=== PATIENT | male | born 1970 | race African-American/Black ===

== ENCOUNTER 2016-09-26 09:30 | Emergency (ER) | payer MEDICAID, OTHER ==
[~2016-09-26] VITALS: Ht 185.4 cm; Wt 90.7 kg
[~2016-09-26 09:30] MED LIST: AMOXICILLIN500 MG PO; BENADRYL25 MG PO; CYCLOBENZAPRINE10 MG ORAL; DILANTIN100 MG PO; FLEXERIL10 MG PO; IBUPROFEN600 MG ORAL; MACROBID100 MG ORAL; NORCO 5-325 TA1 EACH ORAL; VICODIN 5-5001 EACH PO
[2016-09-26] MEDS ORDERED: KEFLEX500 MG ORAL (09:59)
[2016-09-26 11:40] VITALS: BP 14/68
--- NOTE | 2016-09-27 14:13 | Emergency Room Report ---
History of Present Illness General Chief Complaint: Skin Rash/Abscess Source: Patient Present Illness HPI Patient is a 45-year-old male who presented after having increased itchy rash to the back of his neck. Patient stated he recently been using a razor which may have caused the problem. He denies other locations of pain. He had not been having fever. He denied any neck stiffness or headache. Patient had no recent other trauma. Allergies: Coded Allergies: No Known Allergies (Unverified , 09/21/12) Patient History Reviewed Nursing Documentation: PMH: Agreed, PSxH: Agreed Nursing Documentation-PMH Past Medical History: No Stated History Hx Asthma: Yes Hx Seizures: Yes Review of Systems All Other Systems: negative except mentioned in HPI Physical Exam Vital Signs Date Time Temp Pulse Resp B/P Pulse Ox O2 Delivery O2 Flow Rate FiO2 09/26/16 09:36 82 16 119/73 97 09/26/16 10:06 Room Air 09/26/16 11:40 98.4 General Appearance: well appearing, no apparent distress, alert, GCS 15 Head: normocephalic, atraumatic ENT: hearing grossly normal, normal voice Neck: full range of motion, supple Respiratory: no respiratory distress, speaking full sentences Cardiovascular #1: normal inspection, normal peripheral pulses Gastrointestinal: normal inspection, normal bowel sounds Musculoskeletal: normal inspection, back normal, digits/nails normal, no calf tenderness Neurologic: normal inspection, alert, oriented x3, normal gait Psychiatric: normal inspection, mood/affect normal Skin: no rash Medical Decision Making Diagnostic Impression: Primary Impression: Folliculitis ER Course Patient presented for skin rash. Patient presented for skin rash. Differential diagnosis included was not limited to Subramanian-Corey syndrome, folliculitis, urticaria, erythema multiforme, contact dermatitis. Patient's benign exam and does not appear to require any further imaging or laboratory testing at this time the patient presented folliculitis. He is given prescription for antibiotics. He is advised to have wound checked in the next 2 days. Patient is advised to return if he began having fever increased pain or other concerns. Last Vital Signs Date Time Temp Pulse Resp B/P Pulse Ox O2 Delivery O2 Flow Rate FiO2 09/26/16 11:40 98.4 60 19 14/68 98 Room Air Status: improved Disposition: HOME, SELF-CARE Condition: Stable Scripts Cephalexin* (KEFLEX*) 500 Mg Capsule 500 MG ORAL EVERY 6 HOURS, #40 CAP 0 Refills Prov: Domingo Mohr 09/26/16 Referrals: NON PHYSICIAN (PCP) Patient Instructions: Folliculitis Domingo Mohr Sep 27, 2016 14:13
== END 2016-09-26 10:10 | disposition home or self-care (01) ==
LOC: EMR 10:08
DX: L73.9 Follicular disorder, unspecified (principal); J45.909 Unspecified asthma, uncomplicated
CPT/HCPCS: 99283

== ENCOUNTER 2017-03-07 08:17 | Emergency (ER) | payer OTHER ==
[~2017-03-07] VITALS: Ht 185.4 cm; Wt 102.1 kg
[~2017-03-07 08:17] MED LIST changes: +KEFLEX500 MG ORAL
[2017-03-07 08:22] VITALS: BP 117/77
[2017-03-07] MEDS ORDERED: DILANTIN100 MG ORAL (08:38)
[2017-03-07 09:20] VITALS: BP 117/77
--- NOTE | 2017-03-07 09:41 | Emergency Room Report ---
History of Present Illness General Chief Complaint: General Complaint Source: Patient Present Illness HPI 46YOM walk-in for "bumps" on penis for 1 month since receiving oral sex. Denies insertive unprotected sex recently Denies dysuria, penile discharge, vesicles, history of STDs Allergies: Coded Allergies: No Known Allergies (Unverified , 09/21/12) Patient History Past Medical History: none Past Surgical History: none Pertinent Family History: none Social History: Denies: smoking, alcohol use, drug use Immunizations: UTD Reviewed Nursing Documentation: PMH: Agreed, PSxH: Agreed Nursing Documentation-PMH Hx Asthma: Yes Hx Seizures: Yes Review of Systems All Other Systems: negative except mentioned in HPI Physical Exam Vital Signs Date Time Temp Pulse Resp B/P (MAP) Pulse Ox O2 Delivery O2 Flow Rate FiO2 03/07/17 08:22 98.2 99 15 117/77 98 Room Air Sp02 EP Interpretation: reviewed, normal General Appearance: normal inspection, well appearing, no apparent distress, alert, GCS 15, non-toxic Head: normocephalic, atraumatic Eyes: bilateral eye PERRL, bilateral eye EOMI ENT: normal ENT inspection, hearing grossly normal, normal voice Neck: normal inspection, full range of motion, supple, no bony tend Respiratory: normal inspection, lungs clear, normal breath sounds, no respiratory distress, no retraction, no wheezing Cardiovascular #1: regular rate, rhythm, no edema Gastrointestinal: normal inspection, normal bowel sounds, non tender, soft, no guarding, no hernia Musculoskeletal: normal inspection, back normal, normal range of motion, Marley' s Sign negative Neurologic: normal inspection, alert, oriented x3, responsive, culinary chef III-XII nml as tested, motor strength/tone normal, speech normal Psychiatric: normal inspection, judgement/insight normal, mood/affect normal Skin: normal inspection, normal color, no rash Lymphatic: normal inspection Medical Decision Making Diagnostic Impression: Primary Impression: General medical exam ER Course no std clinically Reassured patient Unlikely STD from receptive oral sex Advised go to STD clinic for followup, testing Last Vital Signs Date Time Temp Pulse Resp B/P (MAP) Pulse Ox O2 Delivery O2 Flow Rate FiO2 03/07/17 09:20 98.2 15 117/77 98 Room Air 03/07/17 08:22 99 Status: improved Disposition: HOME, SELF-CARE Condition: Improved Referrals: NON PHYSICIAN (PCP) Additional Instructions: - Go to STD clinic for testing - Use barrier protection/condoms when having sexual intercourse MAYCOL BENITEZ M.D. Mar 07, 2017 09:41
== END 2017-03-07 09:22 | disposition home or self-care (01) ==
LOC: EMR 08:58
DX: N48.9 Disorder of penis, unspecified (principal); J45.909 Unspecified asthma, uncomplicated
CPT/HCPCS: 99282

== ENCOUNTER 2019-08-29 09:50 | Emergency (ER) | payer OTHER ==
[~2019-08-29] VITALS: Ht 185.4 cm; Wt 90.7 kg
[~2019-08-29 09:50] MED LIST changes: +DILANTIN100 MG ORAL
--- NOTE | 2019-08-29 10:19 | NUR ---
ED Nurse Note: Pt ambulated to ed with dog, stating that he is a healthy individual but would like a health check up. pt denies pain or other medical complaints.
[2019-08-29 10:20] VITALS: BP 126/71
--- NOTE | 2019-08-29 10:56 | NUR ---
ED Nurse Note: IV site established, blood specimen collected and sent to lab. urine sent to lab.
[2019-08-29 11:23] LABS: ANION GAP 7 mmol/L (5-15); BLOOD UREA NITROGEN 17 mg/dL (7-18); CALCIUM 8.8 MG/DL (8.5-10.1); CARBON DIOXIDE 27 MMOL/L (21-32); CHLORIDE 108 MMOL/L (98-107); CREATININE 0.9 MG/DL (0.55-1.30); POTASSIUM 4.4 MMOL/L (3.5-5.1); SODIUM 142 MMOL/L (136-145)
[2019-08-29 11:27] LABS: BASOPHILS % (AUTO) 1.4 % (0.0-2.0); EOSINOPHILS % (AUTO) 6.9 % (0.0-3.0); HEMATOCRIT 41.1 % (42.0-52.0); HEMOGLOBIN 14.1 G/DL (14.2-18.0); LYMPHOCYTES % (AUTO) 36.3 % (20.0-45.0); MEAN CORPUSCULAR VOLUME 96 FL (80-99); MONOCYTES % (AUTO) 10.5 % (1.0-10.0); NEUTROPHILS % (AUTO) 44.9 % (45.0-75.0); PLATELET COUNT 236 K/UL (150-450); RED BLOOD COUNT 4.28 M/UL (4.70-6.10); RED CELL DISTRIBUTION WIDTH 11.1 % (11.6-14.8); WHITE BLOOD COUNT 4.1 K/UL (4.8-10.8)
[2019-08-29 11:28] LABS: ALANINE AMINOTRANSFERASE 35 U/L (12-78); ALBUMIN 3.9 G/DL (3.4-5.0); ALBUMIN/GLOBULIN RATIO 1.3 (1.0-2.7); ALKALINE PHOSPHATASE 115 U/L (46-116); ASPARTATE AMINO TRANSFERASE 24 U/L (15-37); BILIRUBIN,TOTAL 0.3 MG/DL (0.2-1.0); CREATINE KINASE 153 U/L (26-308)
[2019-08-29 11:32] LABS: APPEARANCE,URINE CLEAR; BILIRUBIN, URINE NEGATIVE (NEGATIVE); GLUCOSE, URINE (UA) NEGATIVE (NEGATIVE); KETONES,URINE NEGATIVE (NEGATIVE); LEUKOCYTE ESTERASE ,URINE NEGATIVE (NEGATIVE); NITRITE,URINE NEGATIVE (NEGATIVE); PH,URINE 6 (4.5-8.0); PROTEIN,URINE NEGATIVE (NEGATIVE); UROBILINOGEN,URINE NORMAL MG/DL (0.0-1.0)
[2019-08-29 11:50] LABS: COLOR,URINE YELLOW
[2019-08-29 12:13] VITALS: BP 125/78
--- NOTE | 2019-08-29 12:13 | NUR ---
ER DISCHARGE NOTE: Patient is cleared to be discharged per ERMD, pt is aox4, on room air, with stable vital signs. pt was given dc and prescription instructions, pt was able to verbalize understanding, pt id band and iv site removed without complications. pt is able to ambulate with steady gait. pt took all belongings.
--- NOTE | 2019-08-29 13:23 | Emergency Room Report ---
History of Present Illness General Chief Complaint: General Complaint Source: Patient Present Illness HPI Patient presents with complaints of dark urine he has noticed this over the past several days Patient reports being on Dilantin for seizure disorder Denies any chest pain denies any back or flank pain Denies any recent exertional activity denies any travel Denies any flank pain or dysuria Allergies: Coded Allergies: PHENYTOIN (Verified Allergy, Unknown, 08/29/19) Patient History Past Medical History: see triage record Reviewed Nursing Documentation: PMH: Agreed; PSxH: Agreed Nursing Documentation-PMH Hx Asthma: Yes Hx Seizures: Yes Review of Systems All Other Systems: negative except mentioned in HPI Physical Exam Vital Signs Date Time Temp Pulse Resp B/P (MAP) Pulse Ox O2 Delivery O2 Flow Rate FiO2 08/29/19 10:13 97.9 73 16 126/71 (89) 95 Room Air Sp02 EP Interpretation: reviewed, normal General Appearance: well appearing, no apparent distress Head: normocephalic, atraumatic Eyes: bilateral eye PERRL, bilateral eye EOMI ENT: hearing grossly normal, normal pharynx, TMs + canals normal, uvula midline Neck: full range of motion, supple, no meningismus, no bony tend Respiratory: lungs clear, normal breath sounds, no rhonchi, no respiratory distress, no retraction, no accessory muscle use Cardiovascular #1: normal peripheral pulses, regular rate, rhythm, no edema, no gallop, no JVD, no murmur Gastrointestinal: normal bowel sounds, non tender, soft, no mass, no organomegaly, non-distended, no guarding, no hernia, no pulsatile mass, no rebound Genitourinary: no CVA tenderness Musculoskeletal: normal inspection Neurologic: motor strength/tone normal, security assistant III-XII nml as tested, oriented x3 , sensory intact, responsive Psychiatric: mood/affect normal Skin: no rash Lymphatic: normal inspection, no adenopathy Medical Decision Making Diagnostic Impression: Primary Impression: dehydration ER Course On clinical exam patient appears well however given the complaints and the presentation other differential such as renal disease rhabdomyolysis, medication reaction were entertained, patient's blood work is at baseline levels Total CK was normal Patient's urine sample was noted by laboratory to be clear and I did contact them and confirm that appearance was clear Case was discussed with the patient possible mild dehydration at the time he noticed some of the discoloration otherwise at this time no evidence of blood and patient is stable for close outpatient follow-up Labs Test 08/29/19 10:52 White Blood Count 4.1 K/UL (4.8-10.8) Red Blood Count 4.28 M/UL (4.70-6.10) Hemoglobin 14.1 G/DL (14.2-18.0) Hematocrit 41.1 % (42.0-52.0) Mean Corpuscular Volume 96 FL (80-99) Mean Corpuscular Hemoglobin 33.0 PG (27.0-31.0) Mean Corpuscular Hemoglobin Concent 34.3 G/DL (32.0-36.0) Red Cell Distribution Width 11.1 % (11.6-14.8) Platelet Count 236 K/UL (150-450) Mean Platelet Volume 6.1 FL (6.5-10.1) Neutrophils (%) (Auto) 44.9 % (45.0-75.0) Lymphocytes (%) (Auto) 36.3 % (20.0-45.0) Monocytes (%) (Auto) 10.5 % (1.0-10.0) Eosinophils (%) (Auto) 6.9 % (0.0-3.0) Basophils (%) (Auto) 1.4 % (0.0-2.0) Urine Color Yellow Urine Appearance Clear Urine pH 6 (4.5-8.0) Urine Specific [place] 1.020 (1.005-1.035) Urine Protein Negative (NEGATIVE) Urine Glucose (UA) Negative (NEGATIVE) Urine Ketones Negative (NEGATIVE) Urine Blood Negative (NEGATIVE) Urine Nitrite Negative (NEGATIVE) Urine Bilirubin Negative (NEGATIVE) Urine Urobilinogen Normal MG/DL (0.0-1.0) Urine Leukocyte Esterase Negative (NEGATIVE) Sodium Level 142 MMOL/L (136-145) Potassium Level 4.4 MMOL/L (3.5-5.1) Chloride Level 108 MMOL/L (98-107) Carbon Dioxide Level 27 MMOL/L (21-32) Anion Gap 7 mmol/L (5-15) Blood Urea Nitrogen 17 mg/dL (7-18) Creatinine 0.9 MG/DL (0.55-1.30) Estimat Glomerular Filtration Rate > 60 mL/min (>60) Glucose Level 102 MG/DL (74-106) Calcium Level 8.8 MG/DL (8.5-10.1) Total Bilirubin 0.3 MG/DL (0.2-1.0) Aspartate Amino Transf (AST/SGOT) 24 U/L (15-37) Alanine Aminotransferase (ALT/SGPT) 35 U/L (12-78) Alkaline Phosphatase 115 U/L (46-116) Total Creatine Kinase 153 U/L (26-308) Total Protein 6.9 G/DL (6.4-8.2) Albumin 3.9 G/DL (3.4-5.0) Globulin 3.0 g/dL Albumin/Globulin Ratio 1.3 (1.0-2.7) Lipase 141 U/L (73-393) Urine Opiates Screen Negative (NEGATIVE) Urine Barbiturates Screen Negative (NEGATIVE) Phenytoin (Dilantin) Level 13.4 ug/mL (10-20) Phencyclidine (PCP) Screen Negative (NEGATIVE) Urine Amphetamines Screen Negative (NEGATIVE) Urine Benzodiazepines Screen Negative (NEGATIVE) Urine Cocaine Screen Negative (NEGATIVE) Urine Marijuana (THC) Screen Positive (NEGATIVE) Last Vital Signs Date Time Temp Pulse Resp B/P (MAP) Pulse Ox O2 Delivery O2 Flow Rate FiO2 08/29/19 12:13 98.0 78 19 125/78 96 Room Air Status: improved Disposition: HOME, SELF-CARE Condition: Improved [facility]errals: [facility] Patient Instructions: Dehydration, Adult Additional Instructions: Patient is provided with the discharge instructions notified to follow up with primary doctor in the next 2-3 days otherwise return to the er with any worsening symptoms. Please note that this report is being documented using [email or web address] technology. This can lead to erroneous entry secondary to incorrect interpretation by the dictating instrument. Myla Yanez DO Aug 29, 2019 13:23
== END 2019-08-29 12:13 | disposition home or self-care (01) ==
LOC: EMR 10:58
DX: E86.0 Dehydration (principal); Z88.8 Allergy status to other drugs, medicaments and biological substances; G40.909 Epilepsy, unspecified, not intractable, without status epilepticus
CPT/HCPCS: 36415; 80053; 80185; 80307; 81003; 82550; 83690; 85025; Z7502; 99283

== ENCOUNTER 2020-01-25 10:55 | Emergency (ER) | payer OTHER ==
[~2020-01-25] VITALS: Ht 185.4 cm; Wt 99.8 kg
[2020-01-25 11:10] VITALS: BP 141/79
--- NOTE | 2020-01-25 11:20 | Emergency Room Report ---
History of Present Illness General Chief Complaint: Pain Source: Patient Present Illness HPI Patient was at the [facility] yesterday. He lifted a heavy water jug and felt pain in his left groin. The pain nearly dropped him to his knees and was severe. It continued constantly and was worsened with any exertion or bearing down. He is urinating without difficulty. He is moving his bowels without difficulty. There is no hematochezia. He denies fevers or chills. The pain is localized to his groin that radiates slightly into his abdomen. He denies dysuria. Prior to coming to the emergency department he was pushing on the area. He states the pain is resolved mainly at this time and is at best minimal. Review of systems for COVID-19 is negative. Allergies: Coded Allergies: No Known Allergies (Unverified , 01/25/20) COVID-19 Screening Contact w/high risk pt: No Experienced COVID-19 symptoms?: No COVID-19 Testing performed PROOF TECHNICIAN HELPER: No Patient History Past Medical History: see triage record Past Surgical History: other Social History: Denies: smoking, alcohol use, drug use Social History Narrative With significant other at home Reviewed Nursing Documentation: PMH: Agreed; PSxH: Agreed Nursing Documentation-PMH Past Medical History: No History, Except For Hx Asthma: Yes Hx Seizures: Yes Review of Systems All Other Systems: negative except mentioned in HPI Physical Exam Vital Signs Date Time Temp Pulse Resp B/P (MAP) Pulse Ox O2 Delivery O2 Flow Rate FiO2 01/25/20 11:00 99.1 89 16 148/84 (105) 96 Room Air Sp02 EP Interpretation: reviewed, normal General Appearance: well appearing, no apparent distress, GCS 15 Head: normocephalic Eyes: bilateral eye normal inspection, bilateral eye PERRL, bilateral eye EOMI ENT: moist mucus membranes Cardiovascular #1: regular rate, rhythm Gastrointestinal: normal bowel sounds, non tender, soft, non-distended, hernia - With minimal bulge left groin Genitourinary: no CVA tenderness Musculoskeletal: gait/station normal Neurologic: alert, grossly normal Psychiatric: mood/affect normal Skin: normal color, no rash, warm/dry Medical Decision Making Diagnostic Impression: Primary Impression: Inguinal hernia Qualified Codes: K40.90 - Unilateral inguinal hernia, without obstruction or gangrene, not specified as recurrent ER Course Patient presents with groin pain after lifting a heavy object yesterday. Differential includes muscle strain, hernia, testicular torsion amongst others. He denies testicular pain during the process which excludes torsion. He denies dysuria also which excludes urinary tract infection. Based on the history and physical inguinal hernia is the diagnosis. Discussed findings with patient. Discussed the need for follow-up with his own physician and the need for surgical referral. Also discussed treatment plan. Patient stable for outpatient observation and treatment. Last Vital Signs Date Time Temp Pulse Resp B/P (MAP) Pulse Ox O2 Delivery O2 Flow Rate FiO2 01/25/20 11:28 98.4 83 16 143/88 98 Room Air Status: improved Disposition: HOME, SELF-CARE Condition: Improved Scripts Ibuprofen* (MOTRIN*) 600 Mg Tablet 600 MG ORAL Q6HR, #20 TAB Prov: Chad Gresham MD 01/25/20 Chad Gresham MD Jan 25, 2020 11:20
[2020-01-25] MEDS ORDERED: IBUPROFEN600 M1 ORAL (11:22)
[2020-01-25 11:28] VITALS: BP 143/88
== END 2020-01-25 11:28 | disposition home or self-care (01) ==
LOC: EMR 11:15
DX: K40.90 Unilateral inguinal hernia, without obstruction or gangrene, not specified as recurrent (principal)
CPT/HCPCS: 99282